=== PATIENT | female | born 1980 | race Two or more races ===

== ENCOUNTER 2025-08-20 13:08 | Emergency (ER) | payer MEDICAID, SELFPAY ==
[2025-08-20 13:58] VITALS: BP 113/71; PULSE 91; RESP 20; TEMP 37.1; O2SAT 97
--- NOTE | 2025-08-20 14:03 | XR_ITS ---
Shoulder bilateral, 6 views Technique: Shoulder AP internal rotation, AP external rotation, Y view each shoulder total 6 views Exam date and time :August 20, 2025, 1439 hours INDICATIONS: Patient fell 2 weeks ago with injury to both shoulders, bilateral shoulder pain. FINDINGS: No shoulder fractures or dislocations No calcific tendinitis No foreign bodies: IMPRESSION: No fractures or dislocations
--- NOTE | 2025-08-20 14:03 | XR_ITS ---
Examination: Cervical spine 3 views Technique one AP lateral coned AP odontoid cervical spine 3 views Date and time: August 20, 2025, 1408 hours INDICATIONS: Patient fell 2 weeks ago with injury to the neck, neck pain FINDINGS: Adequate alignment cervical vertebral bodies. No cervical fracture. Moderate to advanced degenerative disc disease C4-C5, C5-C6 The odontoid is intact but poorly visualized on the AP view IMPRESSION: No cervical fracture
--- NOTE | 2025-08-20 15:26 | EDNOTE_ITS ---
Upper Extremity Injury RME/HPI General Chief Complaint: Extremity Injury, Upper Stated Complaint: L) SHOULDER PAIN, 08/31 Time Seen by Provider: 08/20/25 13:15 Arrival date/time: 08/20/25 13:08 This is a case of 45-year-old female who came in in the emergency room due to left shoulder pain patient states that she might rolled over on the bed and fell landed on the left shoulder pain is radiating also on the left neck patient denies any head neck chest or abdominal injury no loss of consciousness denies any numbness weakness or tingling sensation Limitations: no limitations Related Data Home Medications ?Medication ?Instructions ?Recorded ?Confirmed PT. TAKES NO HOME MEDICATIONS ##0 03/30/13 Previous Rx's ?Medication ?Instructions ?Recorded baclofen 10 mg tablet 10 mg PO BID PRN muscle spas m #10 08/20/25 tabs ibuprofen 800 mg tablet 800 mg PO Q8H PRN pain #20 t abs 08/20/25 Allergies Allergy/AdvReac Type Severity Reaction Status Date / Time morphine Allergy Mild Rash Verified 08/20/25 13:11 amoxicillin Allergy Unknown THROAT Verified 08/20/25 13:11 CLOSES AND RASH diphenhydramine Allergy Unknown Verified 08/20/25 13:11 meperidine Allergy Unknown RASH Verified 08/20/25 13:11 Penicillins Allergy Unknown THROAT Verified 08/20/25 13:11 CLOSES COCONUT Allergy Severe THROAT Uncoded 08/20/25 13:11 SWELLS AND TURNS RED Review of Systems Review of Systems Systems Reviewed: All systems reviewed, normal except as documented Constitutional Constitutional: Reports system reviewed and no additional complaints, except as documented and Reports as per HPI Cardiovascular Cardiovascular: Reports system reviewed and no additional complaints, except as documented and Reports as per HPI Respiratory Respiratory: Reports system reviewed and no additional complaints, except as documented and Reports as per HPI Genitourinary Genitourinary: Reports system reviewed and no additional complaints, except as documented and Reports as per HPI Musculoskeletal Musculoskeletal: Reports system reviewed and no additional complaints, except as documented and Reports as per HPI Integumentary/Breasts Skin/Breast: Reports system reviewed and no additional complaints, except as documented and Reports as per HPI Neurologic Neurologic: Reports system reviewed and no additional complaints, except as documented and Reports as per HPI Past Medical History Social History SMOKING STATUS: Never smoker ED Exam General Limitations: Present no limitations General appearance: Present alert, in no apparent distress and other (Patient is awake alert oriented not in distress nontoxic looking well-hydrated well- nourished) Head Head exam: Present atraumatic, normocephalic and normal inspection Eye Eye exam: Present normal appearance, PERRL and EOMI ENT ENT exam: Present normal exam, normal oropharynx and mucous membranes moist Neck Neck exam: Present normal inspection, full ROM, trachea midline, tenderness and other (Mild tenderness on left side of the neck no crepitation no deformity no redness no swelling ROM intact straight leg exam is normal pulses were full and equal capillary refill less than 2 seconds); Absent meningismus, lymphadenopathy or thyromegaly Chest Chest inspection: Present normal inspection and symmetric chest wall rise; Absent tenderness Respiratory Respiratory exam: Present normal lung sounds bilaterally; Absent respiratory distress, wheezes, stridor, accessory muscle use or prolonged expiratory phase Cardiovascular Cardiovascular exam: Present regular rate, normal rhythm and normal heart sounds; Absent bradycardia, tachycardia, irregular rhythm, systolic murmur or diastolic murmur Abdominal Exam Abdominal exam: Present soft and normal bowel sounds; Absent distention, tenderness, guarding, rebound, rigidity, diminished bowel sounds, hyperactive bowel sounds, hypoactive bowel sounds or organomegaly Extremities Exam Extremities exam: Present normal inspection and full ROM Expanded Upper Extremity Exam Shoulder exam: Present full ROM, tenderness and other (Noted mild tenderness on the left shoulder on the deltoid area but no swelling no crepitation no deformity no cellulitis no redness ROM intact pulses were full and equal capillary refill less than 2 seconds sensory intact); Absent swelling, abrasion, laceration, ecchymosis, deformity, crepitus, dislocation, erythema or tenderness over AC joint Back Exam Back exam: Present normal inspection and full ROM Neurological Exam Neurological exam: Present alert, oriented X3, CN II-XII intact, normal gait, reflexes normal and other (Awake alert oriented x 4 no focal deficit GCS 15/15 steady gait); Absent motor sensory deficit Psychiatric Psychiatric exam: Present normal affect and normal mood Skin Skin exam: Present warm, dry, intact and normal color Course Quality Measures none Orders Category Date Time Status sling [Splint / Immobilizer] STAT Care 08/20/25 14:03 Active XR cervical spine 2-3V Stat Exams 08/20/25 14:03 Completed XR shoulder BI min 2V Stat Exams 08/20/25 14:03 Completed Ketorolac Inj [Toradol Inj] Med 08/20/25 15:06 Discontinued 30 mg IM X1 ONE Vital Signs Vital signs: Vital Signs Temperature 98.7 F 08/20/25 13:58 Pulse Rate 91 08/20/25 13:58 Respiratory Rate 20 08/20/25 13:58 Blood Pressure 113/71 08/20/25 13:58 Pulse Oximetry (%) 97 08/20/25 13:58 Oxygen Delivery Method Room Air 08/20/25 13:58 Oxygen saturation is 97% in room air normal Extremity Injury MDM Narrative MDM Narrative:: This is a case of 45-year-old female who came in in the emergency room due to left shoulder pain patient states that she might rolled over on the bed and fell landed on the left shoulder pain is radiating also on the left neck patient denies any head neck chest or abdominal injury no loss of consciousness denies any numbness weakness or tingling sensation physical examination patient is awake alert oriented not in distress nontoxic looking well-hydrated well- nourished noted mild to moderate tenderness on the left side of the neck and left shoulder but no crepitation no deformity no redness no swelling no rashes no cellulitis ROM intact pulses were full and equal capillary refill less than 2 seconds leg raise exam is normal x-ray showed no fracture no dislocation in the left shoulder and left neck but with DDD cervical patient was given Toradol for pain and sling was applied patient tolerated well neurovascular intact patient will follow-up with PCP in 2 days for reevaluation and to be referred to neurosurgeon and pain management doctor for DDD cervical for possible MRI to rule out herniated disc worsening symptoms or any emergent concern return precaution in the ER was advised patient will continue RICE treatment at home patient was prescribed with ibuprofen and baclofen Patient was discharged with comfortable condition walking with stable gait. Patient verbalized no further complains explained diagnosis and answered patient question. Patient is comfortable with the proposed management plan including the need to follow up with his/her primary care physician and any specialist if applicable Discussed patient for any urgent condition or worsening sx, He/She needed to go to emergency room immediately or call 911. Patient acknowledge the responsibility to follow up as instructed and to monitor her/his symptoms. For any persistence of the symptoms for more than 3-5 days return precaution advised. Discussed the result of the test and was given printed discharge instruction Patient data External records reviewed:: [facility] previous records Clinical information provided by:: patient Social determinants that could affect healthcare access:: none Patient has the following chronic illnesses:: None How is presenting disease/condition affected by chronic disease/condition?: no chronic disease Evaluation data The following diagnostics were reviewed and interpreted by me:: radiology exam(s) Lab and/or radiology exams considered but not ordered:: Reviewed Interpretation Summary: Reviewed Medications / Prescriptions Medications or Prescriptions considered but not ordered:: Given Medication administrations:: Medication Administration History Discontinued Medications Ketorolac Tromethamine (Ketorolac Inj 60 Mg/2 Ml Vial) 30 mg IM X1 ONE Stop: 08/20/25 15:07 Given Consultations Consultation(s) initiated? (list below): No Diagnosis Upper Extremity Injury Differential Diagnosis: other (Shoulder sprain cervical sprain) Most likely diagnosis given after review of the tests above:: Shoulder sprain cervical sprain Admission Indicated Admission indicated?: not indicated Explain why admission is indicated or not indicated:: Not indicated Admission Request Was there a request for admission?: No Admission Attestation Admission request attestation: Not indicated Disposition Plan Disposition Plan: Discharge Discharge Attestation Discharge Attestation: The patient and all family members were given an opportunity to ask questions and understood the discharge instructions. Discharge instructions specifically effects, indications for sooner follow up or return to the emergency department, and the expected course of current diagnosis. Patient condition: Stable Discharge Plan Plan Patient Disposition: HOME (Self Care) Patient condition on transfer: Stable Prescriptions/Referrals Prescriptions/Med Rec: New ibuprofen 800 mg tablet 800 mg PO Q8H PRN (Reason: pain) Qty: 20 0RF baclofen 10 mg tablet 10 mg PO BID PRN (Reason: muscle spasm) Qty: 10 0RF No Action PT. TAKES NO HOME MEDICATIONS Qty: 0 Referrals: No Primary/Family,Physician [Primary Care Provider] - In 1 week Problem List Clinical Impression: Sprain of left shoulder, Cervical sprain, DDD (degenerative disc disease), cervical Patient/Caregiver Discharge Instructions Education Materials: ED Degenerative Disk Disease, ED Neck Sprain or Strain, ED Shoulder Sprain Additional Instructions: Follow-up with your primary care physician in 2 days for reevaluation and to be referred to neurosurgeon for DDD cervical for possible MRI to rule out herniated disc and to be referred to pain management doctor for pain control worsening symptoms or any emergent concerns such as numbness weakness tingling sensation incontinence to urine or stool call 911 or go to the nearest emergency room take your medication as directed ice pack every 2 hours for 30 minutes for 24 hours then alternate with warm compress keep the sling in place until cleared by your primary care physician Print Language: [place] Stand Alone Forms: Dariela Award Info., Patient Portal Info Letter PA/ANTHROPOLOGIST PHYSICAL Supervising Physician PA/JESSICA Supervising Physician: Dr. Beasley
[2025-08-20] MEDS: KETOROLAC INJ 60 MG/2 ML VIAL 30 MG IM (15:35)
== END 2025-08-20 15:53 | disposition home or self-care (01) ==
PROVIDERS: Emergency Provider Family Medicine
DX: S13.4XXA Sprain of ligaments of cervical spine, initial encounter (principal); S43.402A Unspecified sprain of left shoulder joint, initial encounter; M50.321 Other cervical disc degeneration at C4-C5 level; X58.XXXA Exposure to other specified factors, initial encounter
CPT/HCPCS: 72040; 73030; 96372; 99284; J1885

== ENCOUNTER → 2025-09-19 | Outpatient (CLI) | payer MEDICAID, SELFPAY ==
--- NOTE | 2025-09-19 14:50 | XR_ITS ---
Examination: Clavicle 2 views, left Technique: Clavicle AP, angled up AP, 2 views Exam date and time: Contributory 2024, 1506 hours INDICATIONS: Patient fell 2 weeks ago with injury to clavicle, clavicle pain. FINDINGS: No acute clavicle fracture No AC joint separation IMPRESSION: No acute clavicle fracture
--- NOTE | 2025-09-19 14:50 | XR_ITS ---
Examination: Shoulder, left, 3 views Technique: Shoulder AP internal rotation, AP external rotation, Y view shoulder, 3 views Exam date and time : September 19, 2025, 1506 hours INDICATIONS: Patient fell 2 weeks ago with injury to left shoulder, left shoulder pain. FINDINGS: No shoulder fracture or dislocation. No AC joint separation Suspicious for parenchymal disease in the left upper lobe IMPRESSION: No acute shoulder fracture Recommend PA AP lordotic chest follow-up to exclude parenchymal disease in the left upper lobe
== END | disposition home or self-care (01) ==
DX: S43.61XD Sprain of right sternoclavicular joint, subsequent encounter (principal); S49.92XD Unspecified injury of left shoulder and upper arm, subsequent encounter; W19.XXXD Unspecified fall, subsequent encounter
CPT/HCPCS: 73000; 73030